=== PATIENT | male | born 1950 | race Caucasian/White ===

== ENCOUNTER 2018-04-27 18:46 | Inpatient (IN) ==
[2018-04-27] MEDS ORDERED: ASPIRIN 300 MG SUPP RECTAL STA (19:21)
[2018-04-27] MEDS ORDERED: LABETALOL 20 MG/4 ML SYRINGE IV STA (19:21)
[2018-04-27] MEDS ORDERED: ONDANSETRON 4 MG/2 ML VIAL IV STA (19:21)
[2018-04-27] MEDS ORDERED: MORPHINE 4 MG/1 ML VIAL IV STA (19:21)
[2018-04-27 20:02] LABS: Basophils % 0.3 % (0.0-0.8); Immature Granulocytes % 0.6 %; Immature Granulocytes Absolute 0.07 #; Lymphocytes # 0.9 10*3/uL (1.4-4.0); Lymphocytes % 7.6 % (21.2-54.2); Mean Corpuscular HGB Conc 34.2 GM/DL (32-36); Mean Corpuscular Hemoglobin 33 PG (27-34); Mean Corpuscular Volume 95.5 FL (87-102); Mean Platelet Volume 10.4 FL (9.6-12.0); Monocytes # 0.3 10*3/uL (0.11-0.8); Monocytes % 2.8 % (1.7-12.7); Neutrophils # 10.3 10*3/uL (1.4-7.4); Neutrophils % 88.7 % (38.7-73.9); Platelet Count 241 T/CUMM (130-400); Red Blood Count 3.98 MC/CUMM (3.8-5.5); Red Cell Distribution Width 13.4 % (9.3-17.3); White Blood Count 11.6 T/CUMM (4-12)
[2018-04-27 20:15] LABS: PT Patient Result 10.6 SECS; Partial Thromboplastin Time 25.9 SECS (0-40)
[2018-04-27 20:16] LABS: Alanine Aminotransferase 35 U/L (16-61); Albumin 4.2 G/DL (3.4-5.0); Alkaline Phosphatase 60 U/L (45-117); Aspartate Amino Transferase 28 U/L (0-37); Blood Urea Nitrogen 15 MG/DL (7-18); Calcium 9.4 MG/DL (8.5-10.1); Glucose 196 MG/DL (74-106); Osmolality,Calculated 280.7 MOS/KG (273-304); Sodium 138 MMOL/L (136-145)
[2018-04-27] MEDS ORDERED: ONDANSETRON 4 MG/2 ML VIAL IV PRN (21:14)
[2018-04-27] MEDS ORDERED: MORPHINE 4 MG/1 ML VIAL IV PRN (21:14)
[2018-04-27] MEDS ORDERED: ZALEPLON 5 MG CAPSULE PO PRN (21:14)
[2018-04-27] MEDS ORDERED: ACETAMINOPHEN 325 MG TABLET PO PRN (21:14)
[2018-04-27] MEDS ORDERED: DEXTROSE 50% 25 GM/50 ML VIAL IV PRN (21:14)
[2018-04-27] MEDS ORDERED: GLUCAGON 1 MG VIAL IM PRN (21:14)
[2018-04-27] MEDS ORDERED: PROMETHAZINE 25 MG/1 ML VIAL IM PRN (21:14)
[2018-04-27] MEDS ORDERED: diphenhydrAMINE CAP 25 MG CAPSULE PO PRN (21:14)
[2018-04-27] MEDS ORDERED: DOCUSATE SODIUM 100 MG CAPSULE PO PRN (21:14)
[2018-04-27 21:32] LABS: Apearance,Urine CLEAR (Clear); Bilirubin,Urine Negative (Negative); Blood, Urine Negative (Negative); Glucose,Urine (UA) 150 mg/dL (Negative); Ketones,Urine 20 mg/dL (Negative); Mucus,Urine Occasional /LPF (Occasional); Nitrite,Urine Negative (Negative); Protein,Urine >=500 MG/DL; RBC,Urine 2 /HPF (0-4); Urine Color Yellow (Yellow); Urine Specific Gravity 1.012 (1.001-1.035); Urine Urobilinogen < 2.0 EU/DL (0.2-1.0); WBC,Urine 2 /HPF (0-6)
[2018-04-27 21:44] LABS: Barbiturates Screen,Urine Negative (Negative); Benzodiazepines Screen,Urine Negative (Negative); Cannabinoid Screen,Urine Negative (Negative); Opiate Screen,Urine Positive (Negative); Phencyclidine Screen,Urine Negative (Negative)
[2018-04-27] MEDS ORDERED: INFLUENZA VIRUS VACCINE 0.5 ML SYRINGE IM ONE (23:46)
[2018-04-28] MEDS: INSULIN REGULAR 100 UNIT/ML SUBCUT SCH ×4 (00:31→17:58)
[2018-04-28 05:49] LABS: Basophils # 0.1 10*3/uL (0.0-0.2); Basophils % 0.5 % (0.0-0.8); Eosinophils % 0.2 % (0.00-10.9); Hematocrit 34.3 VOL% (42.0-52.0); Hemoglobin 11.8 GM/DL (14.0-18.0); Immature Granulocytes % 0.4 %; Immature Granulocytes Absolute 0.04 #; Lymphocytes # 1.7 10*3/uL (1.4-4.0); Lymphocytes % 15.7 % (21.2-54.2); Mean Corpuscular HGB Conc 34.4 GM/DL (32-36); Mean Corpuscular Hemoglobin 33 PG (27-34); Mean Corpuscular Volume 96.9 FL (87-102); Mean Platelet Volume 10.9 FL (9.6-12.0); Monocytes % 9.3 % (1.7-12.7); Neutrophils # 8.1 10*3/uL (1.4-7.4); Neutrophils % 73.9 % (38.7-73.9); Platelet Count 256 T/CUMM (130-400); Red Blood Count 3.54 MC/CUMM (3.8-5.5); Red Cell Distribution Width 13.4 % (9.3-17.3); White Blood Count 10.9 T/CUMM (4-12)
[2018-04-28 06:09] LABS: Troponin I < 0.015 NG/ML (0.00-0.045)
[2018-04-28 06:10] LABS: Albumin 3.7 G/DL (3.4-5.0); Bilirubin,Total 0.9 MG/DL (0.2-1.0); Osmolality,Calculated 283.4 MOS/KG (273-304); Potassium 3.8 MMOL/L (3.5-5.1); Total Protein 7.1 G/DL (6.4-8.3)
[2018-04-28 08:18] LABS: Risk Ratio 3.91; VLDL CHOLESTEROL 22.2 MG/DL
[2018-04-28] MEDS ORDERED: ENOXAPARIN 40 MG/0.4 ML SYRINGE SUBCUT SCH (09:00)
[2018-04-28] MEDS ORDERED: CARVEDILOL 6.25 MG TABLET PO SCH (09:00)
[2018-04-28] MEDS: CARVEDILOL 12.5 MG TABLET PO SCH ×2 (09:30→20:10)
[2018-04-28] MEDS: ASPIRIN EC 81 MG TABLET PO SCH (09:30)
[2018-04-28] MEDS: PANTOPRAZOLE 40 MG TABLET PO SCH (09:30)
[2018-04-28] MEDS ORDERED: CLOPIDOGREL 75 MG TABLET PO SCH (10:30)
[2018-04-28 12:21] LABS: Troponin I < 0.015 NG/ML (0.00-0.045)
[2018-04-28] MEDS: SODIUM CHLORIDE 0.9% 1,000 ML IV SCH ×2 (14:00→22:35)
[2018-04-28] MEDS: APIXABAN 2.5 MG TABLET PO SCH (20:10)
[2018-04-28] MEDS ORDERED: ATORVASTATIN 40 MG TABLET PO SCH ×2 (21:00)
[2018-04-28 21:34] LABS: Troponin I < 0.015 NG/ML (0.00-0.045)
[2018-04-29] MEDS: INSULIN REGULAR 100 UNIT/ML SUBCUT SCH ×3 (01:27→14:51)
[2018-04-29 05:44] LABS: Basophils % 0.6 % (0.0-0.8); Eosinophils # 0.2 10*3/uL (0.0-0.87); Eosinophils % 2.5 % (0.00-10.9); Hematocrit 30.7 VOL% (42.0-52.0); Hemoglobin 10.4 GM/DL (14.0-18.0); Immature Granulocytes % 0.4 %; Immature Granulocytes Absolute 0.03 #; Lymphocytes # 2.2 10*3/uL (1.4-4.0); Lymphocytes % 29.9 % (21.2-54.2); Mean Corpuscular HGB Conc 33.9 GM/DL (32-36); Mean Corpuscular Hemoglobin 33 PG (27-34); Mean Corpuscular Volume 97.2 FL (87-102); Mean Platelet Volume 10.6 FL (9.6-12.0); Monocytes # 0.6 10*3/uL (0.11-0.8); Monocytes % 8.7 % (1.7-12.7); Neutrophils # 4.2 10*3/uL (1.4-7.4); Neutrophils % 57.9 % (38.7-73.9); Platelet Count 208 T/CUMM (130-400); Red Blood Count 3.16 MC/CUMM (3.8-5.5); Red Cell Distribution Width 13.3 % (9.3-17.3); White Blood Count 7.2 T/CUMM (4-12)
[2018-04-29 05:58] LABS: Osmolality,Calculated 285.3 MOS/KG (273-304); Potassium 3.9 MMOL/L (3.5-5.1)
[2018-04-29] MEDS: SODIUM CHLORIDE 0.9% 1,000 ML IV SCH (07:10)
[2018-04-29] MEDS: APIXABAN 2.5 MG TABLET PO SCH (08:45)
[2018-04-29] MEDS: ASPIRIN EC 81 MG TABLET PO SCH (08:45)
[2018-04-29] MEDS: PANTOPRAZOLE 40 MG TABLET PO SCH (08:45)
[2018-04-29] MEDS: CARVEDILOL 12.5 MG TABLET PO SCH (08:45)
[2018-04-29 13:38] VITALS: BP 133/63
== END 2018-04-29 17:00 | DRG 65 ==
LOC: EDBD → EDUNIT# → N.ED 18:46 → N.EDINP 21:14 → N.4E 22:13
PROVIDERS: ADMIT Internal Medicine; ATTEND Internal Medicine

== ENCOUNTER 2018-11-03 06:51 | Inpatient (IN) ==
[2018-10-27 12:51] LABS: Basophils # 0.1 10*3/uL (0.0-0.2); Basophils % 0.7 % (0.0-0.8); Eosinophils # 0.3 10*3/uL (0.0-0.87); Eosinophils % 3.6 % (0.00-10.9); Hemoglobin 11.2 GM/DL (14.0-18.0); Immature Granulocytes % 0.7 %; Immature Granulocytes Absolute 0.05 #; Lymphocytes % 26.8 % (21.2-54.2); Mean Corpuscular Hemoglobin 33 PG (27-34); Mean Corpuscular Volume 103.6 FL (87-102); Monocytes # 0.7 10*3/uL (0.11-0.8); Monocytes % 9.7 % (1.7-12.7); Neutrophils # 4.4 10*3/uL (1.4-7.4); Neutrophils % 58.5 % (38.7-73.9); Platelet Count 244 T/CUMM (130-400); Red Blood Count 3.38 MC/CUMM (3.8-5.5); Red Cell Distribution Width 13.4 % (9.3-17.3); White Blood Count 7.5 T/CUMM (4-12)
[2018-10-27 13:16] LABS: PT Patient Result 10.8 SECS; Partial Thromboplastin Time 25.8 SECS (0-40)
[2018-10-27 13:23] LABS: Albumin 3.9 G/DL (3.4-5.0); Bilirubin,Total 0.5 MG/DL (0.2-1.0); Calcium 9.5 MG/DL (8.5-10.1); Osmolality,Calculated 286.3 MOS/KG (273-304); Potassium 4.8 MMOL/L (3.5-5.1); Total Protein 7.1 G/DL (6.4-8.3)
[~2018-11-03 06:51] MED LIST: ceFAZolin 1,000 MG in SYRINGE 1 EACH IV ONE
[2018-11-03] MEDS ORDERED: FAMOTIDINE 20 MG TABLET PO ONE (07:51)
[2018-11-03] MEDS ORDERED: ceFAZolin 1,000 MG VIAL ONE (07:53)
[2018-11-03] MEDS: LACTATED RINGERS 1,000 ML IV SCH (07:55)
[2018-11-03] MEDS ORDERED: LIDOCAINE 2% TOP JELLY 20 ML VIAL INTRAURETH ONE (08:20)
[2018-11-03] MEDS ORDERED: VANCOMYCIN 500 MG VIAL ONE (08:20)
[2018-11-03] MEDS ORDERED: HEPARIN 5,000 UNIT/1 ML VIAL ONE (08:20)
[2018-11-03] MEDS ORDERED: THROMBIN TOPICAL (RECOMBINANT) 5,000 UNIT VIAL TOP ONE (08:21)
[2018-11-03] MEDS ORDERED: LIDOCAINE 1% 20 ML VIAL ONE (08:21)
[2018-11-03] MEDS ORDERED: TISSUE ADHESIVE 1 EACH APPLICATOR TOP ONE (10:17)
[2018-11-03] MEDS ORDERED: HYDROmorphone 2 MG/1 ML VIAL IV PRN (10:37)
[2018-11-03] MEDS ORDERED: ONDANSETRON 4 MG/2 ML VIAL IV PRN (10:37)
[2018-11-03] MEDS ORDERED: SEVOFLURANE 1 UNIT/15 MINUTE INH ONE (10:52)
[2018-11-03] MEDS ORDERED: HEPARIN 10,000 UNIT/10 ML VIAL ONE (10:52)
[2018-11-03] MEDS ORDERED: PROPOFOL 200 MG/20 ML VIAL IV ONE (10:52)
[2018-11-03] MEDS ORDERED: fentaNYL 100 MCG/2 ML VIAL ONE (10:53)
[2018-11-03] MEDS ORDERED: GLYCOPYRROLATE 0.4 MG/2 ML VIAL ONE (10:53)
[2018-11-03] MEDS ORDERED: DEXAMETHASONE 4 MG/1 ML VIAL ONE (10:53)
[2018-11-03] MEDS ORDERED: ETOMIDATE 40 MG/20 ML VIAL IV ONE (10:53)
[2018-11-03] MEDS ORDERED: ONDANSETRON 4 MG/2 ML VIAL ONE (10:53)
[2018-11-03] MEDS ORDERED: ePHEDrine 50 MG/ML AMP ONE (10:53)
[2018-11-03] MEDS ORDERED: PROTAMINE SULFATE 50 MG/5 ML VIAL IV ONE (10:54)
[2018-11-03] MEDS ORDERED: NEOSTIGMINE 10 MG/10 ML VIAL ONE (10:54)
[2018-11-03] MEDS ORDERED: LACTATED RINGERS 1,000 ML IV ONE (10:54)
[2018-11-03] MEDS ORDERED: ROCURONIUM 100 MG/10 ML VIAL IV ONE (10:54)
[2018-11-03] MEDS ORDERED: PHENYLEPHRINE 1 MG/10 ML SYRINGE IV ONE (10:54)
[2018-11-03] MEDS ORDERED: KETOROLAC 30 MG/1 ML VIAL ONE (11:41)
[2018-11-03] MEDS: ENOXAPARIN 40 MG/0.4 ML SYRINGE SUBCUT SCH (13:25)
[2018-11-03] MEDS ORDERED: Garlic [Garlic] 1,000 MG PO SCH (21:00)
[2018-11-03] MEDS ORDERED: LUT PO SCH (21:00)
[2018-11-03] MEDS ORDERED: COPPER PO SCH (21:00)
[2018-11-03] MEDS ORDERED: VIT E AC PO SCH (21:00)
[2018-11-03] MEDS ORDERED: Cinnamon Bark [Cinnamon] 500 MG PO SCH (21:00)
[2018-11-03] MEDS ORDERED: [UNRECOGNIZED DRUG - OTHER] PO SCH (21:00)
[2018-11-03] MEDS ORDERED: VIT C PO SCH (21:00)
[2018-11-03] MEDS: DOXAZOSIN 4 MG TABLET PO SCH (21:01)
[2018-11-03] MEDS: ATORVASTATIN 40 MG TABLET PO SCH (21:02)
[2018-11-03] MEDS: PREGABALIN 50 MG CAPSULE PO SCH (21:02)
[2018-11-03] MEDS: CARVEDILOL 25 MG TABLET PO SCH (21:02)
[2018-11-03] MEDS: APIXABAN 2.5 MG TABLET PO SCH (21:02)
[2018-11-03] MEDS: INSULIN GLARGINE 100 UNIT/ML SUBCUT SCH (21:02)
[2018-11-04] MEDS: ENOXAPARIN 40 MG/0.4 ML SYRINGE SUBCUT SCH (00:15)
[2018-11-04 05:11] LABS: Hematocrit 28.8 VOL% (42.0-52.0); Hemoglobin 9.7 GM/DL (14.0-18.0)
[2018-11-04 05:19] LABS: Calcium 8.3 MG/DL (8.5-10.1); Osmolality,Calculated 289.4 MOS/KG (273-304); Potassium 4.6 MMOL/L (3.5-5.1)
[2018-11-04] MEDS ORDERED: MULTIVITAMIN (CENTRUM) TABLET PO SCH (09:00)
[2018-11-04] MEDS ORDERED: APPLE CIDER VINEGAR PO SCH (09:00)
[2018-11-04] MEDS ORDERED: ASPIRIN CHEW 81 MG TABLET PO SCH (09:00)
[2018-11-04] MEDS ORDERED: ASCORBIC ACID 1000 MG PO SCH (09:00)
[2018-11-04] MEDS: LACTATED RINGERS 1,000 ML IV SCH (11:45)
[2018-11-04] MEDS: ALLOPURINOL 300 MG TABLET PO SCH (11:48)
[2018-11-04] MEDS: DOXAZOSIN 4 MG TABLET PO SCH ×2 (11:48→21:46)
[2018-11-04] MEDS: CARVEDILOL 25 MG TABLET PO SCH ×2 (11:49→21:46)
[2018-11-04] MEDS: PREGABALIN 50 MG CAPSULE PO SCH ×2 (11:49→21:45)
[2018-11-04] MEDS: ASPIRIN EC 81 MG TABLET PO SCH (11:50)
[2018-11-04] MEDS: PANTOPRAZOLE 40 MG TABLET PO SCH (11:50)
[2018-11-04] MEDS: APIXABAN 2.5 MG TABLET PO SCH ×2 (11:50→21:46)
[2018-11-04] MEDS: FUROSEMIDE 40 MG TABLET PO SCH (11:50)
[2018-11-04] MEDS: ATORVASTATIN 40 MG TABLET PO SCH (21:45)
[2018-11-04] MEDS: INSULIN GLARGINE 100 UNIT/ML SUBCUT SCH (21:46)
[2018-11-05 05:08] LABS: Basophils % 0.2 % (0.0-0.8); Eosinophils # 0.1 10*3/uL (0.0-0.87); Eosinophils % 0.7 % (0.00-10.9); Hematocrit 26.9 VOL% (42.0-52.0); Hemoglobin 8.8 GM/DL (14.0-18.0); Immature Granulocytes % 0.6 %; Immature Granulocytes Absolute 0.05 #; Lymphocytes # 1.7 10*3/uL (1.4-4.0); Lymphocytes % 19.2 % (21.2-54.2); Mean Corpuscular HGB Conc 32.7 GM/DL (32-36); Mean Corpuscular Hemoglobin 33 PG (27-34); Mean Corpuscular Volume 99.6 FL (87-102); Monocytes # 0.7 10*3/uL (0.11-0.8); Monocytes % 8.2 % (1.7-12.7); Neutrophils # 6.2 10*3/uL (1.4-7.4); Neutrophils % 71.1 % (38.7-73.9); Platelet Count 174 T/CUMM (130-400); Red Cell Distribution Width 13.4 % (9.3-17.3); White Blood Count 8.7 T/CUMM (4-12)
[2018-11-05 08:16] VITALS: BP 155/71
[2018-11-05] MEDS: DOXAZOSIN 4 MG TABLET PO SCH (09:53)
[2018-11-05] MEDS: ASPIRIN EC 81 MG TABLET PO SCH (09:53)
[2018-11-05] MEDS: FUROSEMIDE 40 MG TABLET PO SCH (09:53)
[2018-11-05] MEDS: CARVEDILOL 25 MG TABLET PO SCH (09:54)
[2018-11-05] MEDS: PANTOPRAZOLE 40 MG TABLET PO SCH (09:54)
[2018-11-05] MEDS: ALLOPURINOL 300 MG TABLET PO SCH (09:54)
[2018-11-05] MEDS: PREGABALIN 50 MG CAPSULE PO SCH (09:54)
[2018-11-05] MEDS: APIXABAN 2.5 MG TABLET PO SCH (09:54)
== END 2018-11-05 10:45 | disposition home health service (06) | DRG 254 ==
LOC: N.OR 06:51 → N.SDSINP 06:52 → N.3E 11:36
PROVIDERS: ADMIT Surgery; ATTEND Surgery

== ENCOUNTER 2018-11-29 11:42 | Inpatient (IN) ==
[2018-11-29] MEDS ORDERED: SODIUM CHLORIDE 0.9% 1,000 ML IV STA (12:16)
[2018-11-29 12:58] LABS: Basophils # 0.1 10*3/uL (0.0-0.2); Basophils % 0.4 % (0.0-0.8); Eosinophils # 0.1 10*3/uL (0.0-0.87); Eosinophils % 0.4 % (0.00-10.9); Hematocrit 32.7 VOL% (42.0-52.0); Hemoglobin 10.6 GM/DL (14.0-18.0); Immature Granulocytes % 0.4 %; Immature Granulocytes Absolute 0.06 #; Lymphocytes % 7.4 % (21.2-54.2); Mean Corpuscular HGB Conc 32.4 GM/DL (32-36); Mean Corpuscular Volume 99.7 FL (87-102); Mean Platelet Volume 11.5 FL (9.6-12.0); Monocytes % 9.2 % (1.7-12.7); Neutrophils % 82.2 % (38.7-73.9); Platelet Count 238 T/CUMM (130-400); Red Blood Count 3.28 MC/CUMM (3.8-5.5); Red Cell Distribution Width 13.7 % (9.3-17.3); White Blood Count 13.8 T/CUMM (4-12)
[2018-11-29 13:02] LABS: Apearance,Urine CLEAR (Clear); Bilirubin,Urine Negative (Negative); Blood, Urine Negative (Negative); Glucose,Urine (UA) Negative (Negative); Ketones,Urine Negative (Negative); Nitrite,Urine Negative (Negative); Protein,Urine 100 MG/DL; RBC,Urine 1 /HPF (0-4); Urine Color Yellow (Yellow); Urine Specific Gravity 1.016 (1.001-1.035); Urine Urobilinogen < 2.0 EU/DL (0.2-1.0); WBC,Urine <1 /HPF (0-6)
[2018-11-29 13:07] LABS: PT Patient Result 10.9 SECS
[2018-11-29 13:26] LABS: Albumin 3.9 G/DL (3.4-5.0); Bilirubin,Total 0.6 MG/DL (0.2-1.0); Calcium 9.2 MG/DL (8.5-10.1); Osmolality,Calculated 273.1 MOS/KG (273-304); Thyroid Stimulating Hormone 1.12 uIU/ml (0.358-3.74); Total Protein 7.4 G/DL (6.4-8.3)
[2018-11-29 13:27] LABS: Barbiturates Screen,Urine Negative (Negative); Benzodiazepines Screen,Urine Negative (Negative); Cannabinoid Screen,Urine Negative (Negative); Opiate Screen,Urine Negative (Negative); Phencyclidine Screen,Urine Negative (Negative)
[2018-11-29] MEDS ORDERED: SODIUM CHLORIDE 0.9% 2,650 ML IV ONE (15:20)
[2018-11-29] MEDS ORDERED: VANCOMYCIN INJ 1,250 MG in SODIUM CHLORIDE 0.9% 250 ML IV SCH (15:30)
[2018-11-29] MEDS: PIPERACILLIN/TAZOBACTAM 3,375 MG in SODIUM CHLORIDE 0.9% 100 ML IV SCH (16:20)
[2018-11-29] MEDS: SODIUM CHLORIDE 0.9% 1,000 ML IV SCH (16:20)
[2018-11-29] MEDS ORDERED: GLUCAGON 1 MG VIAL IM PRN (17:38)
[2018-11-29] MEDS ORDERED: DEXTROSE 50% 25 GM/50 ML SYRINGE IV PRN (17:38)
[2018-11-29] MEDS ORDERED: DEXTROSE 50% 25 GM/50 ML VIAL IV PRN (17:38)
[2018-11-29] MEDS ORDERED: VANCOMYCIN INJ 1,500 MG in SODIUM CHLORIDE 0.9% 500 ML IV SCH (18:00)
[2018-11-29] MEDS ORDERED: GARLIC 1000 MG PO SCH (21:00)
[2018-11-29] MEDS ORDERED: CINNAMON BARK 500 MG PO SCH (21:00)
[2018-11-29] MEDS: SODIUM CHLORIDE 0.45% 1,000 ML IV SCH (21:32)
[2018-11-29] MEDS: INSULIN REGULAR 100 UNIT/ML SUBCUT SCH (21:37)
[2018-11-29] MEDS: PREGABALIN 50 MG CAPSULE PO SCH (21:37)
[2018-11-29] MEDS: ATORVASTATIN 40 MG TABLET PO SCH (21:37)
[2018-11-29] MEDS: MULTIVITAMIN (OCUVITE) TABLET PO SCH (21:37)
[2018-11-29] MEDS: PANTOPRAZOLE 40 MG TABLET PO SCH (21:37)
[2018-11-29] MEDS: APIXABAN 2.5 MG TABLET PO SCH (21:37)
[2018-11-29] MEDS: metFORMIN 500 MG TABLET PO SCH (21:37)
[2018-11-29] MEDS: INSULIN GLARGINE 100 UNIT/ML SUBCUT SCH (21:38)
[2018-11-29] MEDS: CARVEDILOL 25 MG TABLET PO SCH (21:38)
[2018-11-29] MEDS: ASPIRIN EC 81 MG TABLET PO SCH (21:38)
[2018-11-29] MEDS: DOXAZOSIN 4 MG TABLET PO SCH (21:38)
[2018-11-29] MEDS ORDERED: ACETAMINOPHEN 325 MG TABLET PO PRN (22:34)
[2018-11-30] MEDS: PIPERACILLIN/TAZOBACTAM 3,375 MG in SODIUM CHLORIDE 0.9% 100 ML IV SCH ×3 (02:38→17:44)
[2018-11-30] MEDS: SODIUM CHLORIDE 0.9% 1,000 ML IV SCH (02:57)
[2018-11-30 05:22] LABS: Basophils # 0.1 10*3/uL (0.0-0.2); Basophils % 0.3 % (0.0-0.8); Eosinophils # 0.2 10*3/uL (0.0-0.87); Eosinophils % 1.3 % (0.00-10.9); Hematocrit 29.8 VOL% (42.0-52.0); Hemoglobin 9.9 GM/DL (14.0-18.0); Immature Granulocytes % 0.6 %; Immature Granulocytes Absolute 0.09 #; Lymphocytes # 1.5 10*3/uL (1.4-4.0); Mean Corpuscular HGB Conc 33.2 GM/DL (32-36); Mean Platelet Volume 11.8 FL (9.6-12.0); Monocytes % 10.8 % (1.7-12.7); Platelet Count 209 T/CUMM (130-400); Red Blood Count 2.98 MC/CUMM (3.8-5.5); White Blood Count 15.2 T/CUMM (4-12)
[2018-11-30 05:42] LABS: VLDL CHOLESTEROL 17.4 MG/DL
[2018-11-30 05:44] LABS: Albumin 3.4 G/DL (3.4-5.0); Bilirubin,Total 1.4 MG/DL (0.2-1.0); Osmolality,Calculated 284.1 MOS/KG (273-304); Total Protein 6.6 G/DL (6.4-8.3); Uric Acid 6.2 MG/DL (3.5-7.2)
[2018-11-30] MEDS: INSULIN REGULAR 100 UNIT/ML SUBCUT SCH ×4 (07:45→20:38)
[2018-11-30] MEDS: DOXAZOSIN 4 MG TABLET PO SCH ×2 (08:55→21:06)
[2018-11-30] MEDS: ASCORBIC ACID 500 MG TABLET PO SCH (08:56)
[2018-11-30] MEDS: MULTIVITAMIN (OCUVITE) TABLET PO SCH ×2 (08:56→21:07)
[2018-11-30] MEDS: PREGABALIN 50 MG CAPSULE PO SCH ×2 (08:56→21:07)
[2018-11-30] MEDS: CARVEDILOL 25 MG TABLET PO SCH ×2 (08:56→21:07)
[2018-11-30] MEDS: MULTIVITAMIN (CENTRUM) TABLET PO SCH (08:56)
[2018-11-30] MEDS: metFORMIN 500 MG TABLET PO SCH ×2 (08:56→21:06)
[2018-11-30] MEDS ORDERED: APPLE CIDER VINEGAR 600 MG PO SCH (09:00)
[2018-11-30] MEDS ORDERED: ALLOPURINOL 300 MG TABLET PO SCH (09:00)
[2018-11-30] MEDS ORDERED: LEVOFLOXACIN INJ 500 MG in PREMIX 1 EACH IV SCH (09:00)
[2018-11-30] MEDS: APIXABAN 2.5 MG TABLET PO SCH (09:03)
[2018-11-30] MEDS ORDERED: SODIUM CHLORIDE 0.45% 1,000 ML IV SCH (13:00)
[2018-11-30] MEDS: SODIUM CHLORIDE 0.45% 1,000 ML IV SCH (16:23)
[2018-11-30] MEDS: ASPIRIN EC 81 MG TABLET PO SCH (21:06)
[2018-11-30] MEDS: ATORVASTATIN 40 MG TABLET PO SCH (21:07)
[2018-11-30] MEDS: PANTOPRAZOLE 40 MG TABLET PO SCH (21:07)
[2018-11-30] MEDS: APIXABAN 5 MG TABLET PO SCH (21:08)
[2018-11-30] MEDS: INSULIN GLARGINE 100 UNIT/ML SUBCUT SCH (21:14)
[2018-12-01] MEDS: PIPERACILLIN/TAZOBACTAM 3,375 MG in SODIUM CHLORIDE 0.9% 100 ML IV SCH ×3 (01:48→18:10)
[2018-12-01 04:55] LABS: Basophils % 0.3 % (0.0-0.8); Eosinophils # 0.3 10*3/uL (0.0-0.87); Eosinophils % 2.8 % (0.00-10.9); Hematocrit 27.9 VOL% (42.0-52.0); Hemoglobin 9.1 GM/DL (14.0-18.0); Immature Granulocytes % 0.4 %; Immature Granulocytes Absolute 0.05 #; Lymphocytes # 1.6 10*3/uL (1.4-4.0); Lymphocytes % 14.3 % (21.2-54.2); Mean Corpuscular HGB Conc 32.6 GM/DL (32-36); Mean Corpuscular Volume 100.4 FL (87-102); Mean Platelet Volume 11.3 FL (9.6-12.0); Monocytes % 8.5 % (1.7-12.7); Neutrophils % 73.7 % (38.7-73.9); Platelet Count 186 T/CUMM (130-400); Red Blood Count 2.78 MC/CUMM (3.8-5.5); Red Cell Distribution Width 13.8 % (9.3-17.3); White Blood Count 11.4 T/CUMM (4-12)
[2018-12-01 05:16] LABS: Albumin 2.8 G/DL (3.4-5.0); Bilirubin,Total 0.7 MG/DL (0.2-1.0); Osmolality,Calculated 280.4 MOS/KG (273-304); Total Protein 6.1 G/DL (6.4-8.3)
[2018-12-01] MEDS: INSULIN REGULAR 100 UNIT/ML SUBCUT SCH ×4 (07:59→22:17)
[2018-12-01] MEDS: CARVEDILOL 25 MG TABLET PO SCH ×2 (08:30→22:16)
[2018-12-01] MEDS: DOXAZOSIN 4 MG TABLET PO SCH ×2 (08:31→22:15)
[2018-12-01] MEDS: metFORMIN 500 MG TABLET PO SCH (08:32)
[2018-12-01] MEDS: PREGABALIN 50 MG CAPSULE PO SCH ×2 (08:32→22:16)
[2018-12-01] MEDS: APIXABAN 5 MG TABLET PO SCH ×2 (08:33→22:15)
[2018-12-01] MEDS: MULTIVITAMIN (OCUVITE) TABLET PO SCH ×2 (08:33→22:15)
[2018-12-01] MEDS: ASCORBIC ACID 500 MG TABLET PO SCH (08:33)
[2018-12-01] MEDS: MULTIVITAMIN (CENTRUM) TABLET PO SCH (08:33)
[2018-12-01] MEDS: SODIUM CHLORIDE 0.45% 1,000 ML IV SCH ×2 (14:21→22:12)
[2018-12-01] MEDS: ASPIRIN EC 81 MG TABLET PO SCH (22:16)
[2018-12-01] MEDS: PANTOPRAZOLE 40 MG TABLET PO SCH (22:16)
[2018-12-01] MEDS: ATORVASTATIN 40 MG TABLET PO SCH (22:17)
[2018-12-01] MEDS: INSULIN GLARGINE 100 UNIT/ML SUBCUT SCH (22:18)
[2018-12-02] MEDS: PIPERACILLIN/TAZOBACTAM 3,375 MG in SODIUM CHLORIDE 0.9% 100 ML IV SCH ×3 (01:46→17:36)
[2018-12-02 05:11] LABS: Basophils % 0.4 % (0.0-0.8); Eosinophils # 0.4 10*3/uL (0.0-0.87); Eosinophils % 5.9 % (0.00-10.9); Hematocrit 28.4 VOL% (42.0-52.0); Hemoglobin 9.2 GM/DL (14.0-18.0); Immature Granulocytes % 0.3 %; Immature Granulocytes Absolute 0.02 #; Lymphocytes # 1.3 10*3/uL (1.4-4.0); Lymphocytes % 18.8 % (21.2-54.2); Mean Corpuscular HGB Conc 32.4 GM/DL (32-36); Mean Corpuscular Volume 100.4 FL (87-102); Mean Platelet Volume 11.8 FL (9.6-12.0); Monocytes % 9.5 % (1.7-12.7); Neutrophils % 65.1 % (38.7-73.9); Platelet Count 199 T/CUMM (130-400); Red Blood Count 2.83 MC/CUMM (3.8-5.5); Red Cell Distribution Width 13.8 % (9.3-17.3)
[2018-12-02 05:38] LABS: Bilirubin,Total 0.9 MG/DL (0.2-1.0); Calcium 9.1 MG/DL (8.5-10.1); Osmolality,Calculated 287.7 MOS/KG (273-304); Total Protein 6.8 G/DL (6.4-8.3)
[2018-12-02] MEDS: INSULIN REGULAR 100 UNIT/ML SUBCUT SCH ×4 (06:44→20:48)
[2018-12-02] MEDS: SODIUM CHLORIDE 0.45% 1,000 ML IV SCH (08:00)
[2018-12-02] MEDS ORDERED: LEVOFLOXACIN INJ 250 MG in PREMIX 1 EACH IV SCH (09:00)
[2018-12-02] MEDS: MULTIVITAMIN (CENTRUM) TABLET PO SCH (09:47)
[2018-12-02] MEDS: DOXAZOSIN 4 MG TABLET PO SCH ×2 (09:47→20:47)
[2018-12-02] MEDS: APIXABAN 5 MG TABLET PO SCH ×2 (09:48→20:47)
[2018-12-02] MEDS: CARVEDILOL 25 MG TABLET PO SCH ×2 (09:48→20:46)
[2018-12-02] MEDS: PREGABALIN 50 MG CAPSULE PO SCH ×2 (09:48→20:46)
[2018-12-02] MEDS: MULTIVITAMIN (OCUVITE) TABLET PO SCH ×2 (09:49→20:46)
[2018-12-02] MEDS: ALLOPURINOL 300 MG TABLET PO SCH (09:49)
[2018-12-02] MEDS: ASCORBIC ACID 500 MG TABLET PO SCH (09:49)
[2018-12-02] MEDS: ATORVASTATIN 40 MG TABLET PO SCH (20:46)
[2018-12-02] MEDS: ASPIRIN EC 81 MG TABLET PO SCH (20:47)
[2018-12-02] MEDS: PANTOPRAZOLE 40 MG TABLET PO SCH (20:47)
[2018-12-02] MEDS: INSULIN GLARGINE 100 UNIT/ML SUBCUT SCH (20:47)
[2018-12-03] MEDS: PIPERACILLIN/TAZOBACTAM 3,375 MG in SODIUM CHLORIDE 0.9% 100 ML IV SCH ×2 (02:02→10:53)
[2018-12-03 04:59] LABS: Basophils % 0.6 % (0.0-0.8); Eosinophils # 0.3 10*3/uL (0.0-0.87); Eosinophils % 6.3 % (0.00-10.9); Hematocrit 27.5 VOL% (42.0-52.0); Hemoglobin 9.1 GM/DL (14.0-18.0); Immature Granulocytes % 0.6 %; Immature Granulocytes Absolute 0.03 #; Lymphocytes # 1.5 10*3/uL (1.4-4.0); Lymphocytes % 28.7 % (21.2-54.2); Mean Corpuscular HGB Conc 33.1 GM/DL (32-36); Mean Corpuscular Volume 100.4 FL (87-102); Mean Platelet Volume 11.6 FL (9.6-12.0); Monocytes % 10.8 % (1.7-12.7); Platelet Count 200 T/CUMM (130-400); Red Blood Count 2.74 MC/CUMM (3.8-5.5); Red Cell Distribution Width 13.6 % (9.3-17.3); White Blood Count 5.2 T/CUMM (4-12)
[2018-12-03 05:40] LABS: Calcium 8.9 MG/DL (8.5-10.1)
[2018-12-03] MEDS: SODIUM CHLORIDE 0.45% 1,000 ML IV SCH (06:25)
[2018-12-03] MEDS: INSULIN REGULAR 100 UNIT/ML SUBCUT SCH ×2 (06:41→11:21)
[2018-12-03] MEDS: DOXAZOSIN 4 MG TABLET PO SCH (08:58)
[2018-12-03] MEDS: PREGABALIN 50 MG CAPSULE PO SCH (08:59)
[2018-12-03] MEDS: MULTIVITAMIN (OCUVITE) TABLET PO SCH (08:59)
[2018-12-03] MEDS: APIXABAN 5 MG TABLET PO SCH (08:59)
[2018-12-03] MEDS: CARVEDILOL 25 MG TABLET PO SCH (08:59)
[2018-12-03] MEDS: ASCORBIC ACID 500 MG TABLET PO SCH (08:59)
[2018-12-03] MEDS: MULTIVITAMIN (CENTRUM) TABLET PO SCH (08:59)
[2018-12-03] MEDS: ALLOPURINOL 300 MG TABLET PO SCH (09:00)
[2018-12-03 11:14] VITALS: BP 149/75
== END 2018-12-03 14:15 | DRG 65 ==
LOC: N.ED 11:42 → N.EDINP 11:42 → N.3E 16:33 → SUATTDRO 11-30 14:20
PROVIDERS: ADMIT Internal Medicine; ATTEND Internal Medicine